=== PATIENT | male | born 1970 | race Caucasian/White ===

== ENCOUNTER 2020-04-23 08:44 | Day surgery (SDC) | payer OTHER ==
[2020-04-23] MEDS ORDERED: LACTATED RINGERS 1,000 ML IV SCH (09:07)
[2020-04-23] MEDS ORDERED: LIDOCAINE 1% (10MG/ML) FOR IV START INTRADERMA ONE (09:40)
[2020-04-23 09:48] VITALS: TEMP 98.2
[2020-04-23] MEDS ORDERED: PROPOFOL 10 MG/ML 20 ML VIAL IV ONE (09:49)
--- NOTE | 2020-04-23 10:08 | P.PCN ---
Date of Procedure: 04/23/20 Procedure(s) Performed: BRIEF HISTORY: Patient is a 50-year-old pleasant white male scheduled for an elective colonoscopy as a part of screening for colorectal neoplasia. PROCEDURE PERFORMED: Colonoscopy. PREOPERATIVE DIAGNOSIS: Screening for colon cancer. IV sedation per Anesthesia. PROCEDURE: After informed consent was obtained, the patient, was brought into the endoscopy unit. IV sedation was administered by Anesthesia under continuous monitoring. Digital rectal examination was normal. Initially the Olympus CF-160 flexible video colonoscope was then inserted in the rectum, gradually advanced into the cecum without any difficulty. Careful examination was performed as the scope was gradually being withdrawn. Ileocecal valve and the appendiceal orifice were visualized and appeared normal. Prep was excellent. Mucosa of the cecum, ascending colon, transverse colon, descending colon, sigmoid colon, and rectum appeared normal. Retroflexion was performed in the rectum and no lesions were seen. The patient tolerated the procedure well. IMPRESSION: Normal-appearing colon from rectum to cecum with no evidence of colorectal neoplasia. RECOMMENDATIONS: Findings of this examination were discussed with the patient is well as his family. He was advised to have a repeat screening colonoscopy in 10 years..
[2020-04-23 10:28] VITALS: BP 121/72; PULSE 66; RESP 17
== END 2020-04-23 10:49 | disposition home or self-care (01) ==
LOC: ORWHC2ENDO 08:44
PROVIDERS: ATTEND Internal Medicine Gastroenterology
DX: Z12.11 Encounter for screening for malignant neoplasm of colon (principal); I10 Essential (primary) hypertension; K08.89 Other specified disorders of teeth and supporting structures; F17.200 Nicotine dependence, unspecified, uncomplicated; K21.9 Gastro-esophageal reflux disease without esophagitis; E66.9 Obesity, unspecified; Z79.899 Other long term (current) drug therapy; Z88.0 Allergy status to penicillin; Z68.30 Body mass index [BMI] 30.0-30.9, adult
CPT/HCPCS: G0121; J2704; 45378

== ENCOUNTER → 2024-01-15 | Outpatient (CLI) | payer BC | END | disposition home or self-care (01) | LOC: LABWHC1 14:34 | PROVIDERS: ATTEND Internal Medicine | CPT/HCPCS: 36415; 82668 ==

== ENCOUNTER → 2024-01-24 | Outpatient (CLI) | payer BC ==
--- NOTE | 2024-01-25 22:18 | CT ---
EXAMINATION TYPE: CT abdomen wo con DATE OF EXAM: 01/24/2024 COMPARISON: None INDICATION: Elevated hemoglobin DLP: 989 mGycm, Automated exposure control for dose reduction was used. CONTRAST: 0 mL of Isovue 300. Study performed with Oral Contrast TECHNIQUE: Axial images were obtained from above the diaphragm to the pubic rami in the axial plane a t 5 mm thick sections. Reconstructed images are reviewed on the computer in the coronal plane. FINDINGS: Limited CT sections are obtained the lung bases. The lung bases are clear. CT ABDOMEN: Liver: There is some mild fatty infiltration liver. Spleen: Normal Pancreas: Normal Adrenal glands: The adrenal glands are normal. Gallbladder: Normal Kidneys: No masses are evident. No hydronephrosis is present. No cysts are present. No renal stone s are evident. Aorta: Vascular calcification is within the aorta. Inferior vena cava: Normal. CT PELVIS: Right inguinal fat-containing hernia appears to be present. No loops of bowel are involved . Loops of bowel within the abdomen and pelvis are normal. There are loops of bowel which are incom pletely distended or lack oral contrast limiting their evaluation. Appendix: Normal as visualized. Urinary bladder: Normal. Genitourinary structures: Prostate is prominent. Osseous structures: No suspicious lytic or sclerotic lesions. IMPRESSION: 1. Mild fatty infiltration of liver. [facility], Workstation: [id number], 01/25/2024 10:16 PM
== END | disposition home or self-care (01) ==
LOC: RADCTMAIN 16:12
PROVIDERS: ATTEND Internal Medicine
CPT/HCPCS: 74150

== ENCOUNTER → 2024-08-23 | Outpatient (CLI) | payer BC ==
--- NOTE | 2024-08-23 08:27 | CTL ---
EXAMINATION TYPE: CT Low Dose Lung DATE OF EXAM ORDERED: 08/23/2024 COMPARISON: None CLINICAL INDICATION: Male, 54 years old with history of Z12.2 SCREENING LUNG CA F17.210 CURRENT SMOKE R; [facility], current smoker 1PPD x 25 years., Lung cancer screening, History of Smoking/tobacco use. TECHNIQUE: Low dose computed tomography scan was performed through the chest at 1 mm thick sections a nd reconstructed images in multiple planes at 1 mm and [address] DLP: 107.[address] CTDI: 2.6 mGy Automated exposure control for dose reduction was used. CT DIAGNOSTIC QUALITY: Satisfactory FINDINGS: EXAMINATION TYPE: CT Low Dose Lung DATE OF EXAM ORDERED: 08/23/2024 CLINICAL INDICATION: Male, 54 years old with history of Z12.2 SCREENING LUNG CA F17.210 CURRENT SMOKE R, history of tobacco use, Lung cancer screening CT DLP: 107.[address] CTDI: 2.6 mGy Automated exposure control for dose reduction was used. Comparison: None TECHNIQUE: Low dose computed tomography scan was performed through the chest at 1 mm thick sections a nd reconstructed images in multiple planes at 1 mm and [address] DIAGNOSTIC QUALITY: Satisfactory FINDINGS: There is a 2 to 3 mm nodule in the right upper lobe small and a 3 to 4 mm nodule in the right middle lobe central calcification consistent with a granuloma. There is no airspace consolidation or abnormal interstitial density. There is no mediastinal, hilar or axillary adenopathy. There is no pleural effusion, pleural thickening or pneumothorax. No focal osseous lesions are seen. Limited scans the upper abdomen reveals no gross abnormality IMPRESSION: 1. Lung rads Category 2 benign. Continue routine screening at yearly intervals. 2. No acute cardiopulmonary disease. [facility], , 08/23/2024 8:24 AM
== END | disposition home or self-care (01) ==
LOC: RADCTMAIN 07:51
PROVIDERS: ATTEND Internal Medicine
DX: Z12.2 Encounter for screening for malignant neoplasm of respiratory organs (principal); F17.210 Nicotine dependence, cigarettes, uncomplicated
CPT/HCPCS: 71271